=== PATIENT | female | born 1950 | race Caucasian/White ===

== ENCOUNTER → 2016-05-22 | Outpatient (CLI) | payer OTHER | END | disposition home or self-care (01) | LOC: PTH.S 07:42 | DX: E11.9 Type 2 diabetes mellitus without complications (principal); I10 Essential (primary) hypertension ==

== ENCOUNTER → 2016-06-26 | Outpatient (CLI) | payer OTHER | END | disposition home or self-care (01) | LOC: RAD.S 08:30 | DX: R10.9 Unspecified abdominal pain (principal); E11.9 Type 2 diabetes mellitus without complications; R16.1 Splenomegaly, not elsewhere classified; Z98.890 Other specified postprocedural states ==

== ENCOUNTER → 2016-07-14 | Outpatient (CLI) | payer OTHER | END | disposition home or self-care (01) | LOC: PTH.S 08:12 | DX: E11.9 Type 2 diabetes mellitus without complications (principal) ==